=== PATIENT | male | born 1945 | race Caucasian/White ===

== ENCOUNTER 2019-02-05 12:10 | Day surgery (SDC) | payer MEDICARE ==
[2019-02-05] MEDS ORDERED: Acetaminophen 500 MG TAB PO SCH (14:45)
[2019-02-05] MEDS ORDERED: diphenhydrAMINE 25 MG CAP PO SCH (14:45)
[2019-02-05 19:58] LABS: #Basophils 0.1 thou/uL (0.0-0.2); #Lymphocytes 0.6 thou/uL (1.20-3.40); #Monocytes 0.6 thou/uL (0.11-0.59); #Neutrophils 5.9 thou/uL (1.40-6.50); %Basophils 1.1 % (0.0-1.0); %Eosinophils 0.6 % (0.0-10.0); %Lymphocytes 7.7 % (21.0-51.0); %Monocytes 8.6 % (0.0-10.0); %Neutrophils 82.2 % (42.0-75.0); Mean Corpuscular HGB CONC 32.2 g/dL (32.0-36.0); Mean Corpuscular Volume 77.8 fL (78.0-98.0); Mean Platelet Volume 7.2 fL (7.4-10.4); Platelet Count 444 thou/uL (130-400); RBC Distribution Width 15.3 % (11.5-14.5); Red Blood Cell (RBC) Count 3.99 mill/uL (4.70-6.10); White Blood Cell (WBC) Count 7.2 thou/uL (4.8-10.8)
[2019-02-05 20:01] VITALS: BP 136/65; TEMP 98.3
== END 2019-02-05 20:03 | disposition home or self-care (01) ==
LOC: SDC 12:10 → ONC/OP 20:03
PROVIDERS: ATTEND Internal Medicine Medical Oncology
PROC: 30233N1 Transfusion of Nonautologous Red Blood Cells into Peripheral Vein, Percutaneous Approach (ICD-10-PCS; principal; 2019-02-05)
DX: D64.9 Anemia, unspecified (principal); D69.6 Thrombocytopenia, unspecified
CPT/HCPCS: 36415; 36430; 85025; 86850; 86900; 86901; P9016; Q0163

== ENCOUNTER 2019-04-24 08:14 | Day surgery (SDC) | payer MEDICARE ==
[2019-04-24] MEDS ORDERED: Acetaminophen 500 MG TAB PO PRN (09:07)
[2019-04-24] MEDS ORDERED: diphenhydrAMINE 25 MG CAP PO PRN (09:07)
[2019-04-24 14:33] VITALS: BP 119/59; TEMP 97.7
[2019-04-24 14:41] LABS: Hemoglobin 9.2 g/dL (14.0-18.0)
== END 2019-04-24 14:34 | disposition home or self-care (01) ==
LOC: ONC/OP 08:14
PROVIDERS: ATTEND Nurse Practitioner Acute Care
PROC: 30233N1 Transfusion of Nonautologous Red Blood Cells into Peripheral Vein, Percutaneous Approach (ICD-10-PCS; principal; 2019-04-24)
DX: D64.9 Anemia, unspecified (principal); D69.6 Thrombocytopenia, unspecified
CPT/HCPCS: 36430; 85014; 85018; 86850; 86900; 86901; P9016; Q0163

== ENCOUNTER 2019-05-10 07:30 | Day surgery (SDC) | payer MEDICARE ==
[2019-05-09 14:59] VITALS: BMI 23.2
[2019-05-10 08:29] LABS: #Basophils 0.1 thou/uL (0.0-0.2); #Eosinphils 0.2 thou/uL (0.0-0.7); #Lymphocytes 1.4 thou/uL (1.20-3.40); #Monocytes 0.6 thou/uL (0.11-0.59); #Neutrophils 4.7 thou/uL (1.40-6.50); %Basophils 1.2 % (0.0-1.0); %Eosinophils 3.3 % (0.0-10.0); %Lymphocytes 19.5 % (21.0-51.0); %Monocytes 9.1 % (0.0-10.0); %Neutrophils 66.9 % (42.0-75.0); Hemoglobin 9.9 g/dL (14.0-18.0); Mean Corpuscular HGB CONC 34.4 g/dL (32.0-36.0); Mean Corpuscular Hemoglobin 29.4 pg (27.0-31.0); Mean Corpuscular Volume 85.3 fL (78.0-98.0); Mean Platelet Volume 6.5 fL (7.4-10.4); Platelet Count 316 thou/uL (130-400); RBC Distribution Width 16.4 % (11.5-14.5); Red Blood Cell (RBC) Count 3.37 mill/uL (4.70-6.10)
[2019-05-10] MEDS ORDERED: Bupivacaine 0.25% HCL 30 ML VIAL ONE (09:23)
[2019-05-10] MEDS ORDERED: Lidocaine 1% w/Epinephrine 1:100K 20 ML VIAL ONE (09:23)
[2019-05-10] MEDS ORDERED: Propofol 500 MG/50 ML VIAL ONE ×2 (09:30→09:32)
[2019-05-10] MEDS ORDERED: Fentanyl 100 MCG/2 ML VIAL ONE (09:30)
[2019-05-10] MEDS ORDERED: PHENYLEPHRINE-NS 100 MCG/ML 10 ML SYRINGE ONE (10:13)
--- NOTE | 2019-05-10 10:52 | RAD ---
EXAM: Single view of the chest HISTORY: Mediport placement COMPARISON: None FINDINGS: Single view of the chest shows a normal sized cardiomediastinal silhouette. A left IJ Medi port is seen with its tip in the superior vena cava. No pneumothorax is seen. There is no evidence of consolidation, mass, or pleural effusion. The bones are unremarkable. IMPRESSION: Status post Mediport placement without evidence of complication.
--- NOTE | 2019-05-13 09:41 | OP ---
DATE OF PROCEDURE: 05/10/2019 PROCEDURE: Left internal jugular MediPort with ultrasound and fluoroscopic guidance. PREOPERATIVE DIAGNOSIS: Renal cell carcinoma. POSTOPERATIVE DIAGNOSIS: Renal cell carcinoma. HISTORY: Mr. 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 He is on chemotherapy and requires MediPort placement for this. DESCRIPTION OF PROCEDURE: After informed consent was obtained and appropriate preoperative antibiotics were administered, the patient was taken to the operating room and placed in the supine position. Monitored anesthesia care was administered. He was prepped and draped in a standard sterile fashion. Since the patient has had intermittent renal insufficiency, the decision was made to place the MediPort in the IJ position. The left IJ was selected and was patent and compressible by sterile ultrasound examination. The patient was placed in Trendelenburg and local anesthesia infused through the skin and subcutaneous tissues overlying the left internal jugular vein. This was accessed under direct ultrasound guidance on the 1st attempt with excellent flow of dark venous nonpulsatile blood. A wire threaded easily and was confirmed by fluoroscopy to be in the superior vena cava and by ultrasound to be in the patent compressible internal jugular vein in the neck. Additional local anesthesia was infused through the skin and subcutaneous tissues of the left neck and chest. A transverse skin incision was made in the infraclavicular area and the subcutaneous pocket created and a MediPort secured within this pocket with Prolene sutures. The MediPort catheter was then tunneled from this location to the left IJ access site and the tubing was clamped. A dilator was placed over the wire under direct fluoroscopic vision and the wire was removed. The tubing was then tunneled through the sheath which was split and removed leaving the catheter in place. The tip of the catheter was positioned in the superior vena cava just above the atrium. This was then secured to the MediPort tubing in the chest and easily aspirated and easily flushed. The course of the catheter was confirmed to be smooth without kinking. The skin incisions were closed with 4-0 Monocryl at the neck and with 3-0 subcutaneous and 4-0 subcuticular Monocryl at the chest. Dermabond dressings were placed, and the patient was taken back to day's stay in good condition. Estimated blood loss was minimal. There were no complications. There were no specimens. Job ID: [id number]
== END 2019-05-10 11:58 | disposition home or self-care (01) ==
LOC: SDC 07:30
PROVIDERS: ATTEND Surgery
PROC: 0JH63WZ Insertion of Totally Implantable Vascular Access Device into Chest Subcutaneous Tissue and Fascia, Percutaneous Approach (ICD-10-PCS; principal; 2019-05-10)
PROC: 02HV33Z Insertion of Infusion Device into Superior Vena Cava, Percutaneous Approach (ICD-10-PCS; 2019-05-10)
DX: C64.9 Malignant neoplasm of unspecified kidney, except renal pelvis (principal); C78.7 Secondary malignant neoplasm of liver and intrahepatic bile duct; C79.70 Secondary malignant neoplasm of unspecified adrenal gland; E78.00 Pure hypercholesterolemia, unspecified; I10 Essential (primary) hypertension; Z79.01 Long term (current) use of anticoagulants; Z79.899 Other long term (current) drug therapy; Z90.5 Acquired absence of kidney
CPT/HCPCS: 36561; 71045; 85025; C1788; 36415; 36416; J0690; J1642; J2704; J3010; S0020